=== PATIENT | female | born 1995 | race African-American/Black ===

== ENCOUNTER 2024-10-11 07:56 | Emergency (ER) | payer BC, SELFPAY ==
[2024-10-11 08:14] VITALS: BP 135/75
--- NOTE | 2024-10-11 09:24 | ED.GENMED ---
History of Present Illness
General
Chief Complaint: Rectal Bleeding
Source: patient and spouse
Time Seen by Provider: 10/11/24 09:09
History of Present Illness
History of Present Illness:
This patient is a 29-year-old female who states that yesterday she started to feel abdominal cramping followed by a bowel movement that was dark in color. Then, later that evening at approximately Joe p.m. she had a soft brown bowel movement
associated with bright red blood when she wipes but also noted in the bowl. Then, this morning, she passed a small amount of mucousy watery blood. She no longer has abdominal discomfort. She denies fever, chills, nausea, vomiting, anorexia, chest
pain, dizziness, dyspnea, back pain, bleeding elsewhere. She is not on any anticoagulation/antiplatelet agents. Patient denies personal history of IBD, is unaware of extent of family history of illness.
Past History
Past History
ED Past Medical History: Other (Neutropenia, latent TB)
ED Past Surgical History: Gynecological
Social History
Tobacco: Non-smoker
Alcohol: None
Drug: None
Personal:
Living: with family
Phy Exam
Physical Exam
Physical Exam:
GENERAL: Alert , in no apparent distress, nontoxic and well-appearing
EYE: pupils equal and reactive, conjunctiva pink
NECK: Supple, no significant adenopathy.
ENT: o/p clr, mmm.
CARDIAC: Regular rate and rhythm .
LUNGS: Clear breath sounds bilaterally, no acute respiratory distress, no wheezes/rales/rhonchi
ABDOMEN: Soft, without focal tenderness, no r/g, no cvat
NEUROLOGICAL: Alert and oriented, no focal neuro deficits
SKIN: Warm and dry, skin intact.
MUSCULOSKELETAL: No edema, well perfused.
PSYCH: Normal and appropriate interaction.
Rectal Sophia RN present, no hemorrhoids noted, no active bleed, heme-negative
Course
Orders/Labs/Results
Orders:
Orders
10/11/24 09:32
Basic Metabolic Panel Urgent
Complete Blood Count/No Diff Urgent
Abnormal Lab Results
10/11/24
09:32
Chloride 109 H mmol/L
(98-107)
Creatinine 0.5 L mg/dL
(0.6-1.0)
10/11/24 09:32
10/11/24 09:32
Vital Signs
Initial and Last Documented VS:
Initial Vital Signs
Temp Pulse Resp BP Pulse Ox
98.4 F 96 16 135/75 99
10/11/24 08:14 10/11/24 08:14 10/11/24 08:14 10/11/24 08:14 10/11/24 08:14
Last Documented Vital Signs
Temp Pulse Resp BP Pulse Ox
98.4 F 96 16 135/75 99
10/11/24 08:14 10/11/24 08:14 10/11/24 08:14 10/11/24 08:14 10/11/24 09:27
*Pulse Oximetry
SaO2: 99
Oxygen Mode of Delivery: Room air
Patient hypoxic: no
*Critical Care Note
Total Time (30-74mins, 75-104mins- exclusive of procedures): Not Applicable
Update Note
Update Note:
Patient presents to the Emergency Department with ____blood with bowel movement
Number and Complexity of Problems Addressed at the Encounter
� Chronic conditions affecting care:
� Acute Exacerbation and/or Progression of Chronic Illness:
� Differential Diagnosis includes: But not limited to colitis, internal hemorrhoids, external hemorrhoids, IBD, etc. etc.
Amount and/or Complexity of Data to be Reviewed and Analyzed
� I performed an independent evaluation of and my interpretation is:
EKG:
CT:
Xrays:
Laboratory Studies: Unremarkable
Other:
� Review of other/old records reveals:
� Clinical information was obtained by an independent historian: who is bedside does at that she presented photos of patient's BM from last night which demonstrates stool that appears brown with small amount of bright red
blood in bowl and on toilet paper
� Prescriptions/Medications Considered but not given:
� Further testing considered but not performed:
Risk of Complications and/or Morbidity or Mortality of Patient Management
� Social determinants of health affecting care:
� Discussion with other providers (PCP, Hospitalists, Consultants, etc):
� Escalation of care including admission/observation vs risk of discharge considered: 11:31 AM labs vitals unremarkable here, no further bleeding, abdomen soft and nontender. Differential diagnosis is broad however appropriate
for outpatient follow-up/evaluation. She already has an established relationship with a GI doctor and will take them today for prompt follow-up. Discussed with her importance of follow-up and reasons return to the ER
ED Attending Note
-
Portions of this chart may have been created with voice recognition software.� Occasional wrong word or��sound alike� substitutions may have occurred due to the inherent limitations of voice recognition software.
Discharge Plan
Departure
Patient Disposition: Home (Routine Discharge)
Date of Disposition: 10/11/24
Time of Disposition: 11:30
Patient with high blood pressure during this ER visit?: Yes
Condition: Good
Discharge Problem:
GI (gastrointestinal bleed)
Instructions: Bloody Stools, Adult (DC), BLOOD PRESSURE
Prescriptions:
No Action
ascorbic acid (vitamin C) [Vitamin C] 500 mg Tablet
500 mg PO DAILY
Eleni-Batson 324 mg Tablet, Effervescent
1 ea PO DAILYPRN PRN (Reason: stomach issuses)
Visbiome 112.5 billion cell Capsule
1 cap PO DAILY
Centrum MultiGummies 80 mcg Tablet,Chewable
1 tab PO DAILY
Referrals:
Víctor Hardy MD [Active, Gastroenterology] - Next open appointment
EDDIE ZAVALETA DO [Family Provider, Family Practice]
Activity Restrictions/Additional Instructions:
IF YOU DEVELOP DIZZINESS, CHEST PAIN, PALPITATIONS, PERSISTENT OR INCREASING BLEEDING, PERSISTENT ABDOMINAL PAIN OR OTHER WORRISOME SIGNS, PLEASE RETURN TO THE ER IMMEDIATELY!
Interventions
Interventions:
*Risk Screen - Suicide Last Done: 10/11/24 08:14
*General Assessment Last Done: 10/11/24 09:35
CC-Mnbkrr-Bsecvbrexo Assessment Last Done: 10/11/24 09:37
ED- Cardiac Assessment Last Done: 10/11/24 09:37
ED- Pulmonary Assessment Last Done: 10/11/24 09:37
Discharge Date and Time
Print Language: AZERI
[2024-10-11 09:35] VITALS: BMI 16.5
[2024-10-11 09:46] LABS: Hematocrit 39.6 % (37.0-47.0); Hemoglobin 13.3 g/dL (12.0-16.0); Mean Corp Hgb Conc. 33.6 g/dL (33.0-37.0); Mean Corpuscular Volume 83.9 fL (81.0-99.0); Platelet Count 182 10^3/uL (130-400); Red Cell Dist. Width 13.1 % (11.5-14.5)
[2024-10-11 10:09] LABS: Blood Urea Nitrogen 9 mg/dl (7-17); Calcium 9.5 mg/dl (8.4-10.2); Carbon Dioxide 23 mmol/L (22-30); Chloride 109 mmol/L (98-107); Estimated Creatinine Clearance 97 ml/min; Glucose 86 mg/dl (70-99); Potassium 4.1 mmol/L (3.5-5.1); Sodium 139 mmol/L (135-145); eGFR > 60.00
== END 2024-10-11 11:57 | disposition home or self-care (01) ==
LOC: EMR 07:56
PROVIDERS: EMERGENCY PHYSICIAN Emergency Medicine; FAMILY PHYSICIAN Student in an Organized Health Care Education/Training Program
DX: K92.2 Gastrointestinal hemorrhage, unspecified (principal)
CPT/HCPCS: 99283; 80048; 85027